=== PATIENT | male | born 1935 | race Caucasian/White ===

== ENCOUNTER 2017-03-07 07:44 | Emergency (ER) | payer OTHER ==
[~2017-03-07] VITALS: Ht 175.3 cm; Wt 73.5 kg
[~2017-03-07 07:44] MED LIST: AMLODIPINE5 M1 PO; ASPIRIN ADULT L81 M5 PO; LATANOPROST2.5 ML OP; MAG PO; METOPROLOL SUCC25 M1 PO; OMEPRAZOLE D/R20 M1 PO; SIMVASTATIN10 M1 PO; TIMOLOL5 ML OP
[2017-03-07 08:40] VITALS: Ht 175.3 cm; Wt 73.5 kg
[2017-03-07 10:05] LABS: microscopic required? YES; urine erythrocyte NEGATIVE (NEGATIVE)
[2017-03-07 10:15] LABS: BASOPHIL % 0.2 % (0-2); PLATELET COUNT 131 x10^3mcL (130-400); RED CELL DISTRIBUTION WIDTH 14.1 % (11.5-14.5)
[2017-03-07 11:56] LABS: ALBUMIN 3.5 g/dL (3.4-5.0); ALKALINE PHOSPHATASE 64 U/L (46-116); ALT/SGPT 30 U/L (16-63); AST/SGOT 23 U/L (15-37); BILIRUBIN TOTAL 0.5 mg/dL (0.20-1.00); CALCIUM 8.4 mg/dL (8.5-10.1); CARBON DIOXIDE 23.1 mmol/L (21-32); CREATININE SERUM 1.5 mg/dL (0.7-1.3); GLUCOSE SERUM 110 mg/dL (74-106); TOTAL PROTEIN, SERUM 7.1 g/dL (6.4-8.2)
[2017-03-07 12:05] LABS: CHLORIDE SERUM 105 mmol/L (98-107); POTASSIUM SERUM 4.4 mmol/L (3.5-5.1); SODIUM SERUM 141 mmol/L (136-145)
[2017-03-07 14:30] LABS: CHLORIDE SERUM 108 mmol/L (98-107); POTASSIUM SERUM 4.2 mmol/L (3.5-5.1); SODIUM SERUM 140 mmol/L (136-145)
[2017-03-07 14:36] LABS: CALCIUM 7.5 mg/dL (8.5-10.1); CARBON DIOXIDE 21.6 mmol/L (21-32); CREATININE SERUM 1.2 mg/dL (0.7-1.3); GLUCOSE SERUM 102 mg/dL (74-106)
[2017-03-07 16:16] VITALS: BP 131/75
== END 2017-03-07 16:19 | disposition home or self-care (01) ==
LOC: ED 07:44
PROVIDERS: Emergency Medicine
DX: R11.2 Nausea with vomiting, unspecified (principal); R19.7 Diarrhea, unspecified; E86.0 Dehydration; I10 Essential (primary) hypertension; Z88.0 Allergy status to penicillin; Z88.2 Allergy status to sulfonamides; Z88.8 Allergy status to other drugs, medicaments and biological substances
CPT/HCPCS: J2405; J3490; J7030

== ENCOUNTER 2017-11-14 06:40 | Inpatient (IN) | payer OTHER ==
[~2017-11-14] VITALS: Ht 175.3 cm; Wt 73.7 kg
[2017-11-14 06:43] VITALS: Ht 175.3 cm; Wt 73.7 kg
[2017-11-14 07:18] LABS: BASOPHIL % 1.1 % (0-2); PLATELET COUNT 157 x10^3mcL (130-400)
[2017-11-14 07:28] LABS: CHLORIDE SERUM 103 mmol/L (98-107); CREATININE SERUM 1.5 mg/dL (0.7-1.3); GLUCOSE SERUM 132 mg/dL (74-106); POTASSIUM SERUM 4.5 mmol/L (3.5-5.1); SODIUM SERUM 136 mmol/L (136-145)
[2017-11-14 07:34] LABS: ALBUMIN 3.8 g/dL (3.4-5.0); ALKALINE PHOSPHATASE 80 U/L (46-116); ALT/SGPT 28 U/L (16-63); AST/SGOT 25 U/L (15-37); BILIRUBIN TOTAL 0.7 mg/dL (0.20-1.00); CHOLESTEROL 140 mg/dL (<200); HDL CHOLESTEROL 58 mg/dL (40-60); TOTAL PROTEIN, SERUM 7.5 g/dL (6.4-8.2)
[2017-11-14] MEDS ORDERED: METOPROLOL SUCC50 M2 PO (09:25)
[2017-11-14] MEDS ORDERED: NOR10 PO (09:25)
[2017-11-14] MEDS ORDERED: ALPOS (09:26)
[2017-11-14] MEDS ORDERED: PROS (09:27)
[2017-11-14 10:56] VITALS: BP 148/64
[2017-11-14 11:01] LABS: microscopic required? NO
[2017-11-14 11:18] LABS: urine erythrocyte NEGATIVE (NEGATIVE)
[2017-11-14 13:27] VITALS: BP 142/62
[2017-11-14 17:00] VITALS: BP 140/60
[2017-11-15 06:05] VITALS: BP 129/74
[2017-11-15 06:37] LABS: BASOPHIL % 0.4 % (0-2); PLATELET COUNT 134 x10^3mcL (130-400); RED CELL DISTRIBUTION WIDTH 13.9 % (11.5-14.5)
[2017-11-15 06:48] LABS: CARBON DIOXIDE 27.7 mmol/L (21-32); CHLORIDE SERUM 102 mmol/L (98-107); CREATININE SERUM 1.5 mg/dL (0.7-1.3); GLUCOSE SERUM 140 mg/dL (74-106); POTASSIUM SERUM 4.9 mmol/L (3.5-5.1); SODIUM SERUM 137 mmol/L (136-145)
[2017-11-15 08:46] VITALS: BP 144/69
[2017-11-15 13:58] VITALS: BP 105/54
[2017-11-15 17:15] VITALS: BP 140/61
[2017-11-15 20:48] VITALS: BP 120/59
[2017-11-16 05:36] VITALS: BP 135/69
[2017-11-16 06:10] LABS: BASOPHIL % 0.2 % (0-2); PLATELET COUNT 151 x10^3mcL (130-400); RED CELL DISTRIBUTION WIDTH 13.8 % (11.5-14.5)
[2017-11-16 06:35] LABS: CALCIUM 8.9 mg/dL (8.5-10.1); CARBON DIOXIDE 25.2 mmol/L (21-32); CHLORIDE SERUM 102 mmol/L (98-107); CREATININE SERUM 1.9 mg/dL (0.7-1.3); GLUCOSE SERUM 170 mg/dL (74-106); POTASSIUM SERUM 4.4 mmol/L (3.5-5.1); SODIUM SERUM 138 mmol/L (136-145)
[2017-11-16 09:01] VITALS: BP 117/60
[2017-11-16 12:31] VITALS: BP 115/69
[2017-11-16 17:25] VITALS: BP 109/57
[2017-11-16 20:39] VITALS: BP 125/66
[2017-11-17 05:39] VITALS: BP 144/71
[2017-11-17 06:10] LABS: PLATELET COUNT 161 x10^3mcL (130-400); RED CELL DISTRIBUTION WIDTH 14.1 % (11.5-14.5)
[2017-11-17 06:17] LABS: CALCIUM 8.9 mg/dL (8.5-10.1); CARBON DIOXIDE 25.6 mmol/L (21-32); CHLORIDE SERUM 103 mmol/L (98-107); CREATININE SERUM 1.9 mg/dL (0.7-1.3); GLUCOSE SERUM 152 mg/dL (74-106); POTASSIUM SERUM 4.6 mmol/L (3.5-5.1); SODIUM SERUM 140 mmol/L (136-145)
[2017-11-17 06:58] LABS: BASOPHIL % 0 % (0-2)
[2017-11-17 08:14] VITALS: BP 144/71
[2017-11-17 10:43] VITALS: BP 134/73
[2017-11-17 12:25] VITALS: BP 107/60
[2017-11-17 16:21] VITALS: BP 131/63
[2017-11-17 20:47] VITALS: BP 112/63
[2017-11-18 05:48] VITALS: BP 147/77
[2017-11-18 06:07] LABS: BASOPHIL % 0.2 % (0-2); PLATELET COUNT 186 x10^3mcL (130-400); RED CELL DISTRIBUTION WIDTH 14.2 % (11.5-14.5)
[2017-11-18 06:44] LABS: CALCIUM 8.7 mg/dL (8.5-10.1); CARBON DIOXIDE 26.1 mmol/L (21-32); CHLORIDE SERUM 102 mmol/L (98-107); CREATININE SERUM 1.7 mg/dL (0.7-1.3); GLUCOSE SERUM 148 mg/dL (74-106); POTASSIUM SERUM 4.5 mmol/L (3.5-5.1); SODIUM SERUM 139 mmol/L (136-145)
[2017-11-18 09:27] VITALS: BP 156/78
[2017-11-18 12:22] VITALS: BP 141/78
[2017-11-18 17:06] VITALS: BP 134/76
[2017-11-18 20:28] VITALS: BP 127/67
[2017-11-19 05:11] VITALS: BP 132/71
[2017-11-19 09:30] VITALS: BP 126/79
[2017-11-19 10:47] VITALS: BP 126/79
[2017-11-19 12:07] VITALS: BP 136/74
[2017-11-19] MEDS ORDERED: LEVAQUIN250 M1 PO (12:39)
[2017-11-19] MEDS ORDERED: VENTOLIN H0.09 MG/A1 INH (12:40)
[2017-11-19] MEDS ORDERED: PRE20 PO (12:41)
== END 2017-11-19 13:43 | disposition home health service (06) | DRG 177 ==
LOC: ED 06:40 → DU 08:57 → EDBEDREQ 08:58 → DU 09:50
PROVIDERS: Emergency Medicine; Internal Medicine
DX: J69.0 Pneumonitis due to inhalation of food and vomit (principal); J96.01 Acute respiratory failure with hypoxia; G72.81 Critical illness myopathy; J44.1 Chronic obstructive pulmonary disease with (acute) exacerbation; N17.9 Acute kidney failure, unspecified; I12.9 Hypertensive chronic kidney disease with stage 1 through stage 4 chronic kidney disease, or unspecified chronic kidney disease; N18.9 Chronic kidney disease, unspecified; R73.9 Hyperglycemia, unspecified; Z68.24 Body mass index [BMI] 24.0-24.9, adult
CPT/HCPCS: 36600; 83880; 92610-GN; 92611-GN; 94150; 97110-GP; 97116-GP; 97530-GP; J1644; J1940; J1956; J2550; J2920; J3535; J7030; J7040; J7613; J7620; J7626; Q0092

== ENCOUNTER 2017-11-25 15:42 | Emergency (ER) | payer OTHER ==
[~2017-11-25 15:42] MED LIST changes: +ALPOS; +LEVAQUIN250 M1 PO; +METOPROLOL SUCC50 M2 PO; +NOR10 PO; +PRE20 PO; +PROS; +VENTOLIN H0.09 MG/A1 INH
[2017-11-25 15:56] VITALS: Ht 175.3 cm
[2017-11-25 17:18] VITALS: BP 133/71
== END 2017-11-25 17:18 | disposition home or self-care (01) ==
LOC: ED 15:42
DX: T38.0X5A Adverse effect of glucocorticoids and synthetic analogues, initial encounter (principal); I10 Essential (primary) hypertension; E78.00 Pure hypercholesterolemia, unspecified; Z86.2 Personal history of diseases of the blood and blood-forming organs and certain disorders involving the immune mechanism; Z88.0 Allergy status to penicillin; Z88.2 Allergy status to sulfonamides; Y92.89 Other specified places as the place of occurrence of the external cause